=== PATIENT | female | born 1985 | race African-American/Black ===

== ENCOUNTER 2024-05-11 18:45 | Emergency (ER) | payer OTHER | END 2024-05-11 21:53 | disposition left against medical advice (07) | LOC: ER 18:55 | DX: M25.569 Pain in unspecified knee (principal); Z53.21 Procedure and treatment not carried out due to patient leaving prior to being seen by health care provider ==

== ENCOUNTER 2024-05-14 10:14 | Emergency (ER) | payer OTHER ==
[~2024-05-14] VITALS: Ht 162.6 cm; Wt 81.6 kg
[2024-05-14 10:33] VITALS: BP 115/63; TEMP 97.9; O2SAT 98
[2024-05-14] MEDS ORDERED: KETOROLAC TROMETHAMINE INJ 30 MG/ML VIAL IM ONE (11:00)
[2024-05-14] MEDS ORDERED: KETOROLAC TROMETHAMINE INJ 30 MG/ML VIAL ONE (11:04)
== END 2024-05-14 11:11 | disposition home or self-care (01) ==
LOC: ER 10:20
DX: M25.562 Pain in left knee (principal)
CPT/HCPCS: 99281; J1885

== ENCOUNTER 2024-05-20 19:25 | Emergency (ER) | payer OTHER | END 2024-05-20 22:31 | disposition left against medical advice (07) | LOC: ER 19:27 | DX: R07.9 Chest pain, unspecified (principal); Z53.21 Procedure and treatment not carried out due to patient leaving prior to being seen by health care provider ==